=== PATIENT | female | born 1965 | race Caucasian/White ===

== ENCOUNTER 2019-10-22 18:07 | Emergency (ER) | payer MEDICARE, MEDICAID ==
[2019-10-22 18:37] LABS: ABSOLUTE LYMPHOCYTES (AUTO) 1.4 10^3/uL (0.5-4.7); ABSOLUTE MONOCYTES (AUTO) 0.9 10^3/uL (0.1-1.4); BASOPHILS % (AUTO) 0.2 % (0-2); EOSINOPHILS % (AUTO) 0.3 % (0-6); HEMATOCRIT 37.4 % (36.0-47.0); HEMOGLOBIN 12.9 g/dL (12.0-15.5); LYMPHOCYTES % (AUTO) 13.4 % (13-45); MEAN CORPUSCULAR HEMOGLOBIN 29.2 pg (27.0-33.4); MEAN CORPUSCULAR HGB CONC 34.5 g/dL (32.0-36.0); MEAN CORPUSCULAR VOLUME 85 fl (80-97); MONOCYTES % (AUTO) 8.5 % (3-13); PLATELET COUNT 153 10^3/uL (150-450); RED BLOOD COUNT 4.42 10^6/uL (3.72-5.28); RED CELL DISTRIBUTION WIDTH 12.9 % (11.5-14.0); SEGMENTED NEUTROPHILS % (AUTO) 77.6 % (42-78); TOTAL CELLS COUNTED % (AUTO) 100 %; WHITE BLOOD COUNT 10.3 10^3/uL (4.0-10.5)
[2019-10-22 19:01] LABS: ALBUMIN 3.9 g/dL (3.5-5.0); ALKALINE PHOSPHATASE 74 U/L (38-126); ANION GAP 8 (5-19); ASPARTATE AMINO TRANSFERASE 34 U/L (14-36); BILIRUBIN,TOTAL 0.3 mg/dL (0.2-1.3); BLOOD UREA NITROGEN 10 mg/dL (7-20); CALCIUM 9.2 mg/dL (8.4-10.2); CARBON DIOXIDE 28 mmol/L (22-30); CHLORIDE 102 mmol/L (98-107); GLUCOSE 175 mg/dL (75-110); POTASSIUM 4.7 mmol/L (3.6-5.0); TOTAL PROTEIN 6.8 g/dL (6.3-8.2)
[2019-10-22 19:02] LABS: ACETAMINOPHEN < 10 ug/mL (10-30); ALCOHOL < 10 mg/dL (NONE DETECTED); SALICYLATE < 1.0 mg/dL (2.0-20.0)
[2019-10-22 19:26] LABS: APPEARANCE,URINE TURBID; BILIRUBIN,URINE NEGATIVE (NEGATIVE); COLOR,URINE YELLOW; GLUCOSE, URINE NEGATIVE (NEGATIVE); KETONES,URINE NEGATIVE (NEGATIVE); LEUKOCYTE ESTERASE,URINE LARGE (NEGATIVE); NITRITE,URINE NEGATIVE (NEGATIVE); PROTEIN,URINE 30 mg/dL (NEGATIVE); URINE SPECIFIC GRAVITY 1.009; UROBILINOGEN,URINE NEGATIVE mg/dL (<2.0)
[2019-10-22 19:46] LABS: URINE AMPHETAMINES SCREEN NEGATIVE; URINE BARBITURATES SCREEN NEGATIVE; URINE COCAINE SCREEN NEGATIVE; URINE MARIJUANA (THC) SCREEN NEGATIVE; URINE PHENCYCLIDINE SCREEN NEGATIVE
[2019-10-22 19:47] LABS: URINE BENZODIAZEPINES SCREEN UNCONFIRMED POSITIVE; URINE METHADONE SCREEN UNCONFIRMED POSITIVE
--- NOTE | 2019-10-22 19:52 | PSYCHOLOGICAL NOTE ---
Psych Note - Psych Note Date seen by psych provider: 10/22/19 Time seen by psych provider: 18:20 Psych Note: Reason for Consult: OD Patient presents altered mental status. It is noted patient's home medication of methadone 10 mg (170 qty) filled 10/04 is empty, her Xanax 1 mg (84 qty) filled 10/13 is empty and her Flexeril 5 mg (90qty) filled 09/28 is empty. All other home medications. That the patient is noncompliant. 24-hour petition for evaluation is signed and placed in patient's chart
--- NOTE | 2019-10-22 22:10 | EKG REPORT ---
SEVERITY:- ABNORMAL ECG - SINUS TACHYCARDIA PROBABLE INFERIOR INFARCT, AGE INDETERMINATE : Confirmed by: Emmett Goncalves 22-Oct-2019 22:09:53
--- NOTE | 2019-10-22 22:51 | ER Document Report ---
ED General - General Chief Complaint: Overdose Stated Complaint: POSSIBLE OVERDOSE Time Seen by Provider: 10/22/19 19:59 - HPI Notes: Patient is a 54-year-old female who presents to the ED for further evaluation. Entire history is obtained from social services counselor, EMS. Evidently the patient has had altered mental status for the last several days. Patient's daughter states this to EMS. The patient was found with empty methadone, Flexeril, Xanax bottles. She does not appear to be compliant with any of her medications. The patient cannot offer any real history. - Related Data Allergies/Adverse Reactions: No Known Allergies Allergy (Verified 10/22/19 18:42) Home Medications: It seems likely patient is noncompliant with most of these medications. Medications include Bystolic 10 mg daily, clonidine 0.3 mg 3 times a day, losartan/HCTZ 100/25 daily, Lasix 20 mg daily as needed, metformin 500 mg twice daily, Synthroid 75 mcg daily, gemfibrozil 600 mg twice a day, Zoloft 100 mg twice a day, Trileptal 300 mg twice a day, Vistaril 50 mg as needed, Linzess 145 mcg daily, Xanax 1 mg 1 3 times daily as needed, methadone 10 mg 2 tablets in the morning 1-2 tabs in the midday and 2 tabs in the evening, Flexeril 5 mg 3 times daily as needed Past Medical History - General Information source: Emergency Med Personnel - Social History Smoking Status: Unknown if Ever Smoked Family History: Reviewed & Not Pertinent - Past Medical History Cardiac Medical History: Reports: Hx Hypercholesterolemia, Hx Hypertension Review of Systems - Review of Systems -: Yes ROS unobtainable due to patient's medical condition Physical Exam - Vital signs Vitals: Resp Pulse Ox 12 95 10/22/19 18:15 10/22/19 18:15 - Notes Notes: This is an extremely disheveled 54-year-old female who appears her stated age. She is drowsy but awakes to verbal stimuli. Slurred speech consistent with intoxication. She is able to follow commands intermittently. Confused, but answers some questions appropriately, slurred words noted. I asked her what month it is, she tells me at Thursday. Head is normocephalic and atraumatic, pupils are 6 mm, sluggish but reactive, equal. Nares are patent, oral mucosa is moist. Uvula is midline. Heart is regular rate and rhythm, lungs are clear to auscultation bilaterally. Abdomen soft, nontender, active bowel sounds. Extremities without cyanosis or clubbing. No posterior calf tenderness. Skin is warm and dry. Patient moves all 4 extremities spontaneously. Course - Re-evaluation Re-evalutation: 10/23/19 00:04 Patient presents to the emergency department for evaluation of altered mental status. Initially she could offer me no significant history. She has been here for some time, she continues to become more awake and alert. She states she does not really understand why she is here. She states she is taking her medications as prescribed, but tells me that some of the prescriptions are old. She offers no explanation as to why there are no Xanax, methadone, or Flexeril left, despite the recent dates on them. At this point she is medically cleared, awaiting psychosocial evaluation. 10/23/19 00:15 Please note patient's blood pressure was high throughout the course of her stay. She is clearly noncompliant with the majority of her medications. I did go ahead and give her some blood pressure medication tonight, but I am not continuing her clonidine until we see what her blood pressure does. I am concerned that this patient is noncompliant with her medications, then obtained new prescriptions with which she is not compliant. I am concerned that the addition of too many medications will cause hypotension. I do not suspect a hypertensive encephalopathy in this patient who clearly was under the influence, and has had slow improvement during the course of her stay while here. - Vital Signs Vital signs: Temp Pulse Resp BP Pulse Ox 98.3 F 19 176/118 H 94 10/22/19 18:40 10/22/19 19:55 10/22/19 23:52 10/22/19 18:30 - Laboratory Result Diagrams: 10/22/19 18:16 10/22/19 18:16 Laboratory results interpreted by me: 10/22/19 10/22/19 18:16 19:07 Glucose 175 H Urine Protein 30 H Urine Blood SMALL H Ur Leukocyte Esterase LARGE H Salicylates < 1.0 L Acetaminophen < 10 L - EKG Interpretation by Me Additional EKG results interpreted by me: 10/23/19 00:11 Sinus tachycardia with a rate of 113 bpm. Normal axis and intervals. T wave inversions in the inferior leads normal variant versus ischemia. Nonspecific T wave flattening. No old studies available for comparison. Discharge - Discharge Clinical Impression: Altered mental status Qualifiers: Altered mental status type: transient alteration of awareness Qualified Code(s): R40.4 - Transient alteration of awareness Overdose Qualifiers: Encounter type: initial encounter Injury intent: undetermined intent Qualified Code(s): T50.904A - Poisoning by unspecified drugs, medicaments and biological s ubstances, undetermined, initial encounter Condition: Stable Disposition: OTHER
[2019-10-22] MEDS ORDERED: CLONIDINE HCL 0.2 MG TABLET PO ONE (23:57)
[2019-10-23] MEDS: LOSARTAN POTASSIUM 50 MG TABLET PO SCH ×2 (00:35→09:27)
[2019-10-23] MEDS ORDERED: CLONIDINE HCL 0.2 MG TABLET PO SCH ×2 (06:00→14:00)
[2019-10-23] MEDS: LEVOTHYROXINE SODIUM 0.075 MG TABLET PO SCH (06:23)
--- NOTE | 2019-10-23 07:29 | RADIOLOGY REPORT (SQ) ---
Left hand radiographs: 10/23/2019 6:27 AM CDT TECHNIQUE: AP, oblique, and lateral images of the left hand were obtained. HISTORY: 54-year-old patient with history of left hand pain, trauma. COMPARISON: None available FINDINGS: The carpal arcs appear to be intact. The soft tissues are grossly unremarkable. There are no findings to suggest an acute fracture or subluxation within the left hand. No abnormal soft tissue calcifications, significant osteophyte formation, periarticular osteopenia, or bony erosions are seen. There is an acute, nondisplaced fracture through the ulnar styloid. IMPRESSION: There are no findings to suggest an acute fracture or subluxation within the left hand. There is an acute, nondisplaced fracture through the ulnar styloid.
[2019-10-23] MEDS ORDERED: CLONIDINE HCL 0.2 MG TABLET PO ONE (08:35)
[2019-10-23] MEDS: METFORMIN HCL 500 MG TABLET PO SCH ×2 (09:28→15:41)
[2019-10-23] MEDS: HYDROCHLOROTHIAZIDE 25 MG TABLET PO SCH (09:28)
[2019-10-23] MEDS: NEBIVOLOL HCL 10 MG TABLET PO SCH (09:52)
[2019-10-23] MEDS: GEMFIBROZIL 600 MG TABLET PO SCH ×2 (09:52→17:36)
[2019-10-23] MEDS ORDERED: CLONIDINE HCL 0.1 MG TABLET PO ONE (10:10)
--- NOTE | 2019-10-23 10:13 | ER Document Report ---
Doctor's Note Notes: 10/23/19 10:11 Patient is awake and alert in the room answering questions appropriately although she denies being sedated yesterday despite multiple observations that contradict this opinion. She is moderately hypertensive still no chest pain shortness of breath. They held her clonidine yesterday. I had ordered 0.2 mg e jocelynn, she states she takes 0.3 mg 3 times daily. We will add 0.1 mg to make her morning dose. Nursing has not yet given her morning blood pressure medications which include Cozaar, bysystolic, HCTZ. Will recheck pressure in 1 hour after medications
--- NOTE | 2019-10-23 11:18 | ER Document Report ---
Doctor's Note Notes: 10/23/19 11:17 Patient blood pressure remains elevated at 160/113. She did get her initial morning medications late. As she does seem to be hypertensive at baseline, will add back her clonidine today as she is awake and alert answering appropriately and is not sedated.
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
[2019-10-24] MEDS ORDERED: IBUPROFEN 600 MG TABLET PO ONE (02:06)
[2019-10-24] MEDS: LEVOTHYROXINE SODIUM 0.075 MG TABLET PO SCH (06:54)
[2019-10-24] MEDS: METFORMIN HCL 500 MG TABLET PO SCH (08:19)
[2019-10-24] MEDS: NEBIVOLOL HCL 10 MG TABLET PO SCH (10:25)
[2019-10-24] MEDS: HYDROCHLOROTHIAZIDE 25 MG TABLET PO SCH (10:25)
[2019-10-24] MEDS: GEMFIBROZIL 600 MG TABLET PO SCH (10:26)
[2019-10-24] MEDS: LOSARTAN POTASSIUM 50 MG TABLET PO SCH (10:26)
[2019-10-24 16:23] VITALS: BP 146/97
--- NOTE | 2019-10-25 07:48 | PSYCHOLOGICAL NOTE ---
Psych Note - Psych Note Date seen by psych provider: 10/24/19 Psych Note: Patient is a 54 year old female who presented to the ED the evening of 10/22/2019 via EMS for overdose after daughter called them due to patient "acting funny since 1700 that day" and having history of substance abuse. [facility] had the following: Methadone 10MG filled with 170 count, Flexeril 5MG filled 09/29/2019 with [facility] [place] and Xanax filled 10/14/2019 84 count all three empty. In addition she had 10 other medications (both medical and psychiatric) that she appeared to be noncompliant with. She was subsequently put on FULL IVC and placement efforts started last evening. Continued those placement efforts today, specifically coordinating with [facility] who did accept her. Will move forward with that placement since they can address dual diagnosis. Patient daughter Korin had called in to check on patient earlier afternoon. She was contacted and made aware of general plan of care: IVC and sent to [facility] for further treatment.
== END 2019-10-24 16:21 | disposition other institution (70) ==
LOC: ER 18:07
DX: R40.4 Transient alteration of awareness (principal); T50.904A Poisoning by unspecified drugs, medicaments and biological substances, undetermined, initial encounter; E78.00 Pure hypercholesterolemia, unspecified; I10 Essential (primary) hypertension; Z91.14 Patient's other noncompliance with medication regimen
CPT/HCPCS: 93005; 99285; 36415; 87086; 82962; 80307 ×4; 85025; 81025; 80053; 81001; 93010; A9270 ×15; J3490